=== PATIENT | female | born 1950 | race Caucasian/White ===

== ENCOUNTER 2017-11-08 20:06 | Emergency (ER) | payer MEDICARE, BC ==
[2017-11-08] MEDS: ALBUTEROL SULFATE 2.5 MG/3 ML NEBU. CONT NEB (21:12)
[2017-11-08] MEDS ORDERED: predniSONE 20 MG TABLET PO (21:30)
[2017-11-08] MEDS: predniSONE 20 MG TABLET PO (22:00)
== END 2017-11-08 23:20 | disposition home or self-care (01) ==
LOC: ER 23:20
DX: J32.9 Chronic sinusitis, unspecified (principal); Z88.5 Allergy status to narcotic agent
CPT/HCPCS: 70486; 71046; 94640; 94644; 99285-25; J7512; J7613

== ENCOUNTER 2019-12-15 04:59 | Emergency (ER) | payer BC ==
[~2019-12-15] VITALS: Ht 152.4 cm; Wt 50.0 kg
[~2019-12-15 04:59] MED LIST: ALBU2.5V8 INH; BENZ100C PO; LEVO500T59 PO; PRED50TA PO
[2019-12-15] MEDS ORDERED: FAMO-63 PO (05:23)
[2019-12-15] MEDS ORDERED: HYDR25CA PO (05:23)
[2019-12-15] MEDS ORDERED: PRED20TA PO (05:23)
--- NOTE | 2019-12-15 05:24 | PHYS DOC ---
Past Medical History Past Medical History: CVA Past Surgical History: Hysterectomy, Other Additional Past Surgical Histo: CVA clips, deviated septum, R hip/leg fx Smoking Status: Never Smoker Alcohol Use: None Drug Use: None General Adult EDM: Chief Complaint: SKIN RASH/ABSCESS HPI: HPI: Patient is a 69-year-old female who presents with a diffuse urticarial rash. She states she has been dealing with this since back in February. The rash comes and goes when it comes it is extremely pruritic. 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 She denies any lip or tongue swelling she denies any difficulty swallowing. No difficulty breathing. [] Review of Systems: Review of Systems: Constitutional: Denies fever or chills. [] Eyes: Denies change in visual acuity. [] HENT: Denies nasal congestion or sore throat. [] Respiratory: Denies cough or shortness of breath. [] Cardiovascular: Denies chest pain or edema. [] GI: Denies abdominal pain, nausea, vomiting, bloody stools or diarrhea. [] : Denies dysuria. [] Musculoskeletal: Denies back pain or joint pain. [] Integument: Per HPI [] Neurologic: Denies headache, focal weakness or sensory changes. [] Endocrine: Denies polyuria or polydipsia. [] Lymphatic: Denies swollen glands. [] Psychiatric: Denies depression or anxiety. [] Heart Score: Risk Factors: Risk Factors: DM, Current or recent (<one month) smoker, HTN, HLP, family history of CAD, obesity. Risk Scores: Score 0 - 3: 2.5% MACE over next 6 weeks - Discharge Home Score 4 - 6: 20.3% MACE over next 6 weeks - Admit for Clinical Observation Score 7 - 10: 72.7% MACE over next 6 weeks - Early Invasive Strategies Allergies: Allergies: Allergies Coded Allergies Type Severity Reaction Last Updated Verified hydromorphone Allergy Intermediate 11/08/17 Yes Physical Exam: PE: Constitutional: Well developed, well nourished, mild to moderate distress, non- toxic appearance. [] HENT: Normocephalic, atraumatic, bilateral external ears normal, oropharynx moist, no oral exudates, nose normal. [] Eyes: PERRLA, EOMI, conjunctiva normal, no discharge. [] Neck: Normal range of motion, no tenderness, supple, no stridor. [] Cardiovascular:Heart rate regular rhythm, no murmur [] Lungs & Thorax: Bilateral breath sounds clear to auscultation [] Abdomen: Bowel sounds normal, soft, no tenderness, no masses, no pulsatile masses. [] Skin: Generalized urticarial rash. [] Back: No tenderness, no CVA tenderness. [] Extremities: No tenderness, no cyanosis, no clubbing, ROM intact, no edema. [] Neurologic: Alert and oriented X 3, normal motor function, normal sensory function, no focal deficits noted. [] Psychologic: Anxious [] EKG: EKG: [] Radiology/Procedures: Radiology/Procedures: [] Course & Med Decision Making: Course & Med Decision Making Pertinent Labs and Imaging studies reviewed. (See chart for details) [] Dragon Disclaimer: Dragon Disclaimer: This electronic medical record was generated, in whole or in part, using a voice recognition dictation system. Departure Departure Impression: Primary Impression: Urticaria of entire body Disposition: HOME, SELF-CARE Condition: STABLE Referrals: MELI RODRIGUEZ MD (PCP) Patient Instructions: Hives Additional Instructions: It is very important for you to follow with Dr. Lira. Return to the emergency department with any new or concerning symptoms Scripts Famotidine (PEPCID) 20 Mg Tablet 20 MG PO BID for hives for 30 Days, #60 TAB Prov: GRANT BUI DO 12/15/19 Hydroxyzine Pamoate (VISTARIL) 25 Mg Capsule 1 CAP PO TID for itching, #90 CAP 1 Refill Prov: GRANT BUI DO 12/15/19 Prednisone (PREDNISONE) 20 Mg Tablet 1 TAB PO TID PRN for HIVES for 5 Days, #15 TAB Prov: GRANT BUI DO 12/15/19 Justicifation of Admission Dx: Justifications for Admission: Justification of Admission Dx: No GRANT BUI DO Dec 15, 2019 05:23
[2019-12-15] MEDS ORDERED: diphenhydrAMINE 50 MG/ML VIAL IVP ONE (06:00)
[2019-12-15] MEDS ORDERED: FAMOTIDINE 20 MG/2 ML VIAL IVP ONE (06:00)
[2019-12-15] MEDS ORDERED: methylPREDNISolone SOD SUCC PF 125 MG/2 ML VIAL. IV ONE (06:00)
[2019-12-15] MEDS ORDERED: IV NORMAL SALINE 1000ML BAG 1,000 ML IV ONE (06:00)
[2019-12-15 06:25] VITALS: BP 137/69
== END 2019-12-15 06:30 | disposition home or self-care (01) ==
LOC: ER 04:59
DX: L50.9 Urticaria, unspecified (principal); Z86.73 Personal history of transient ischemic attack (TIA), and cerebral infarction without residual deficits; Z88.5 Allergy status to narcotic agent
CPT/HCPCS: 96374; 96375; 99284; J1200; J2930; J3490; J7030